=== PATIENT | female | born 1995 | race Two or more races ===

== ENCOUNTER → 2025-07-01 | Outpatient (CLI) | payer MEDICAID, SELFPAY ==
--- NOTE | 2025-07-01 12:30 | XR_ITS ---
Exam: MRI knee without contrast, right Date and time of exam: July 01, 2025, 1321 hours INDICATIONS: Burning sensation in the knee with swelling 1 year Technique: Multiple axial, coronal, and sagittal sections on the knee have been obtained. T2-Weighted sagittal, fat-suppressed images, TR 3,500, TE 62, T2 weighted coronal fat-saturated images, TR 3,500, TE 62 Proton density sagittal sections, TR 1800, TE 31. T-1 weighted coronal images, TR 524, TE 13.0 Findings: Medial meniscus anterior horn intact. Medial meniscus, body intact. Posterior horn medial meniscus intact. Lateral meniscus anterior horn is intact Lateral meniscus, body is intact Posterior horn lateral meniscus is intact Anterior cruciate ligament moderate strain Posterior cruciate ligament appears intact. Knee effusion is small. Quadriceps and patellar tendons appear intact. There is no evidence of tendinosis. Inflammatory change or fracture of Hoffa's fat pad is not seen. Medial patellar facet demonstrates no thinning. Lateral patellar facet cartilage demonstrates no thinning. Trochlear cartilage demonstrates no thinning. Marrow signal adequate. Medial collateral ligament appears intact. No meniscocapsular separation is seen. Illiotibial band and fibular collateral ligament are intact. Biceps femoris tendons appear intact. Medial femoral condylar articular cartilage demonstrates no thinning. Lateral femoral condylar articular cartilage demonstrates no thinning. Tibial plateau cartilage demonstrates no thinning. Impression: Moderate sprain anterior cruciate ligament
== END | disposition home or self-care (01) ==
LOC: SMRI 11:46
PROVIDERS: PCP Nurse Practitioner Family; Referring Provider Nurse Practitioner Family; Visit Provider Nurse Practitioner Family
DX: S83.511A Sprain of anterior cruciate ligament of right knee, initial encounter (principal); X58.XXXA Exposure to other specified factors, initial encounter
CPT/HCPCS: 73721